=== PATIENT | female | born 1955 | race Caucasian/White ===

== ENCOUNTER 2022-10-30 17:04 | Emergency (ER) | payer MEDICARE, BC | END 2022-10-30 19:12 | disposition home or self-care (01) | LOC: JP.ED 17:04 | DX: L03.116 Cellulitis of left lower limb (principal); R60.0 Localized edema; I10 Essential (primary) hypertension; M19.90 Unspecified osteoarthritis, unspecified site; J45.909 Unspecified asthma, uncomplicated; E11.9 Type 2 diabetes mellitus without complications; Z86.16 Personal history of COVID-19; Z88.8 Allergy status to other drugs, medicaments and biological substances; Z79.899 Other long term (current) drug therapy | CPT/HCPCS: 99282 ==

== ENCOUNTER 2022-11-09 08:10 | Day surgery (SDC) | payer MEDICARE, BC ==
[2022-11-09] MEDS ORDERED: fentaNYL 50 MCG/ML SDV ONE (08:30)
[2022-11-09] MEDS ORDERED: Propofol 200 MG/20 ML SDV ONE (08:30)
[2022-11-09] MEDS ORDERED: Midazolam 1 MG/ML 2 ML SDV ONE (08:30)
[2022-11-09] MEDS ORDERED: Lactated Ringers 1,000 ML IV SCH (09:00)
== END 2022-11-09 11:00 | disposition home or self-care (01) ==
LOC: JP.SDS 08:10
PROVIDERS: ATTEND Family Medicine
DX: Z12.11 Encounter for screening for malignant neoplasm of colon (principal); G47.33 Obstructive sleep apnea (adult) (pediatric); F32.A Depression, unspecified; F41.9 Anxiety disorder, unspecified; E11.9 Type 2 diabetes mellitus without complications; Z88.8 Allergy status to other drugs, medicaments and biological substances; Z86.010 Personal history of colon polyps; Z90.710 Acquired absence of both cervix and uterus; Z90.79 Acquired absence of other genital organ(s); Z90.722 Acquired absence of ovaries, bilateral
CPT/HCPCS: G0105; J2250; J2704; J3010; J7120

== ENCOUNTER 2024-04-08 19:53 | Emergency (ER) | payer MEDICARE, BC ==
[2024-04-08] MEDS ORDERED: Naloxone 0.4 MG/ML SDV IVPUSH PRN (19:59)
[2024-04-08 20:32] LABS: BASOPHILS ABSOLUTE AUTO 0.08 K/uL (0.00-0.10); BASOPHILS PERCENT AUTO 0.7 % (0.1-1.3); EOSINOPHILS ABSOLUTE AUTO 0.13 K/uL (0.00-0.40); EOSINOPHILS PERCENT AUTO 1.2 % (0.0-5.4); HEMATOCRIT 47.5 % (34.3-46.0); HEMOGLOBIN 16.2 g/dL (11.2-15.5); IMMATURE GRAN ABSOLUTE AUTO 0.04 K/uL (0.00-0.23); IMMATURE GRAN PERCENT AUTO 0.4 % (0.0-0.7); LYMPHOCYTES ABSOLUTE AUTO 2.12 K/uL (0.8-3.3); LYMPHOCYTES PERCENT AUTO 19.1 % (11.4-47.7); MEAN CORPUSCULAR HEMOGLOBIN 29.3 pg (31.6-35.5); MEAN CORPUSCULAR HGB CONC 34.1 g/dL (31.6-35.5); MEAN CORPUSCULAR VOLUME 85.9 fL (81.4-99.0); MONOCYTES ABSOLUTE AUTO 0.67 K/uL (0.20-0.90); NEUTROPHILS ABSOLUTE AUTO 8.05 K/uL (1.0-7.6); NEUTROPHILS PERCENT AUTO 72.6 % (40.0-78.1); PLATELET COUNT,PLT 209 K/uL (130-375); RED BLOOD CELL COUNT 5.53 M/uL (3.77-5.24); WHITE BLOOD CELL COUNT,WBC 11.1 K/uL (3.2-11.0)
[2024-04-08] MEDS: HYDROmorphone 0.5 MG/0.5 ML Syringe IVPUSH ONE (20:36)
[2024-04-08] MEDS: Ondansetron 4 MG/2 ML SDV IVPUSH ONE (20:40)
[2024-04-08 20:55] LABS: A/G RATIO 1.1 (1.2-2.2); ALANINE AMINOTRANSFERASE,ALT 28 U/L (12-78); ALBUMIN 4.1 g/dL (3.4-5.0); ALKALINE PHOSPHATASE 78 U/L (46-116); ANION GAP 16.5 mmol/L (5.0-14.0); ASPARTATE AMNIOTRANSFERASE,AST 20 U/L (15-37); BILIRUBIN TOTAL 0.5 mg/dL (0.2-1.0); BLOOD UREA NITROGEN,BUN 21 mg/dL (7-18); C-REACTIVE PROTEIN 0.72 mg/dL (<0.50); CALCIUM 9.6 mg/dL (8.5-10.1); CARBON DIOXIDE,CO2 28 mmol/L (21-32); CHLORIDE,CL 101 mmol/L (100-108); CREATININE 1.1 mg/dL (0.6-1.0); EST CRCL DRUG DOSING (CG) 41.05 mL/min; ESTIMATED GFR 55 mL/min (>60); GLUCOSE RANDOM 172 mg/dL (74-106); POTASSIUM,K 3.5 mmol/L (3.6-5.2); SODIUM,NA 142 mmol/L (140-148)
[2024-04-08] MEDS: Sodium Chloride 0.9% 1,000 ML IV ONE (21:06)
[2024-04-08 22:05] LABS: APPEARANCE,URINE CLEAR (CLEAR); BILIRUBIN,URINE NEGATIVE (NEGATIVE); COLOR,URINE YELLOW (YELLOW); GLUCOSE,URINE NEGATIVE (NEGATIVE); KETONES,URINE 15 mg/dL (NEGATIVE); LEUKOCYTE ESTERASE,URINE NEGATIVE (NEGATIVE); NITRITE,URINE NEGATIVE (NEGATIVE); OCCULT BLOOD,URINE TRACE-INTACT (NEGATIVE); PROTEIN,URINE TRACE mg/dL (NEGATIVE); UROBILINOGEN,URINE 0.2 EU/dL (0.2-1.0)
[2024-04-08 22:16] LABS: AMORPHOUS SEDIMENT,URINE NOT SEEN; BACTERIA,URINE MANY; EPITHELIAL CELLS,URINE RARE; MUCUS,URINE NOT SEEN; RBC,URINE 0-5 (0-5); WBC,URINE 0-5 (0-5)
[2024-04-08] MEDS: Prochlorperazine 10 MG/2 ML SDV IVPUSH ONE (22:32)
[2024-04-08] MEDS: Sodium Chloride 0.9% 100 ML IV SCH (22:54)
[2024-04-08] MEDS: Iopamidol 755 Mg/ML 100 ML Bottle IV SCH (22:54)
[2024-04-08] MEDS: Sodium Chloride 0.9% 10 ML Syringe FLUSH PRN (22:55)
[2024-04-09] MEDS: Apixaban 5 MG Tab PO ONE (00:31)
[2024-04-09] MEDS: oxyCODONE 5 MG Tab PO ONE (00:31)
== END 2024-04-09 00:35 | disposition home or self-care (01) ==
LOC: JP.ED 19:53
DX: K80.50 Calculus of bile duct without cholangitis or cholecystitis without obstruction (principal); I48.0 Paroxysmal atrial fibrillation; J45.909 Unspecified asthma, uncomplicated; Z86.16 Personal history of COVID-19; Z90.710 Acquired absence of both cervix and uterus; Z79.899 Other long term (current) drug therapy
CPT/HCPCS: 36415; 71275; 74177; 80053; 81001; 83690; 84484; 85025; 85379; 86140; 93005; 96361; 96374; 96375; 99284; A9270; J0780; J1171; J2405; J3490; J7030; Q9967

== ENCOUNTER 2025-03-24 13:55 | Emergency (ER) | payer MEDICARE, BC ==
[2025-03-24] MEDS ORDERED: Naloxone 0.4 MG/ML SDV IVPUSH PRN (15:57)
[2025-03-24 17:08] LABS: BASOPHILS ABSOLUTE AUTO 0.05 K/uL (0.00-0.10); BASOPHILS PERCENT AUTO 0.5 % (0.1-1.3); EOSINOPHILS ABSOLUTE AUTO 0.23 K/uL (0.00-0.40); EOSINOPHILS PERCENT AUTO 2.3 % (0.0-5.4); IMMATURE GRAN ABSOLUTE AUTO 0.05 K/uL (0.00-0.23); IMMATURE GRAN PERCENT AUTO 0.5 % (0.0-0.7); LYMPHOCYTES ABSOLUTE AUTO 0.95 K/uL (0.8-3.3); LYMPHOCYTES PERCENT AUTO 9.3 % (11.4-47.7); MONOCYTES ABSOLUTE AUTO 0.80 K/uL (0.20-0.90); MONOCYTES PERCENT AUTO 7.9 % (3.3-12.6); NEUTROPHILS ABSOLUTE AUTO 8.10 K/uL (1.0-7.6); NEUTROPHILS PERCENT AUTO 79.5 % (40.0-78.1); PLATELET COUNT,PLT 159 K/uL (130-375); RED BLOOD CELL COUNT 5.39 M/uL (3.77-5.24); WHITE BLOOD CELL COUNT,WBC 10.2 K/uL (3.2-11.0)
[2025-03-24 17:23] LABS: APPEARANCE,URINE CLOUDY (CLEAR); GLUCOSE,URINE NEGATIVE (NEGATIVE); OCCULT BLOOD,URINE NEGATIVE (NEGATIVE)
[2025-03-24 17:23] LABS: INR 1.1
[2025-03-24] MEDS: Ondansetron 4 MG/2 ML SDV IVPUSH PRN (17:26)
[2025-03-24 17:28] LABS: SQUAMOUS EPITHELIAL CELLS,UR MANY /HPF; UROTHELIAL CELLS,URINE NOT SEEN /HPF
[2025-03-24 17:34] LABS: A/G RATIO 0.7 (1.2-2.2); ALANINE AMINOTRANSFERASE,ALT 380 U/L (12-78); ASPARTATE AMNIOTRANSFERASE,AST 185 U/L (15-37); BILIRUBIN TOTAL 10.9 mg/dL (0.2-1.0); BLOOD UREA NITROGEN,BUN 9 mg/dL (7-18); CARBON DIOXIDE,CO2 33 mmol/L (21-32); CHLORIDE,CL 97 mmol/L (100-108); CREATININE 0.5 mg/dL (0.6-1.0); EST CRCL DRUG DOSING (CG) 89.08 mL/min; ESTIMATED GFR 102 mL/min (>60); GLUCOSE RANDOM 101 mg/dL (74-106); POTASSIUM,K 3.8 mmol/L (3.6-5.2); PRO B-TYPE NATRIUR PEPT,BNPPRO 294 pg/mL (5-125); PROTEIN TOTAL,TP 7.1 g/dL (6.4-8.2); SODIUM,NA 136 mmol/L (140-148)
[2025-03-24 17:40] LABS: TROPONIN I HIGH SENSITIVITY 11.6 pg/mL (<=60.3)
[2025-03-24] MEDS: Sodium Chloride 0.9% 10 ML Syringe FLUSH ONE (20:24)
[2025-03-24] MEDS: Iopamidol 612 MG/ML 100 ML Bottle IV ONE (20:24)
== END 2025-03-25 00:27 | disposition other institution (70) ==
LOC: JP.ED 13:55
DX: K81.9 Cholecystitis, unspecified (principal); K83.1 Obstruction of bile duct; E80.6 Other disorders of bilirubin metabolism; I10 Essential (primary) hypertension; Z79.899 Other long term (current) drug therapy; Z86.16 Personal history of COVID-19; Z79.84 Long term (current) use of oral hypoglycemic drugs
CPT/HCPCS: 36415; 71045; 71045-26; 74177; 80053; 81001; 83605; 83690; 83735; 83880; 84484; 85025; 85610; 86140; 87086; 87088; 87186; 93005; 96361; 96365; 96375; 96376; 99285-25; J1171; J2405; J2543; J7030; Q9967